=== PATIENT | female | born 1960 | race Caucasian/White ===

== ENCOUNTER 2017-12-18 22:36 | Emergency (ER) | payer SELFPAY ==
[~2017-12-18] VITALS: Ht 167.6 cm; Wt 70.0 kg
[~2017-12-18 22:36] MED LIST: CLEO300C2 PO; DIAZ10 PO; DOXY100T PO; OXYC-360 PO; PREN0.01 PO; [UNRECOGNIZED DRUG - CODE] PO
[2017-12-18 22:42] VITALS: BP 106/66; PULSE 109; RESP 22; TEMP 98.1; O2SAT 97
[2017-12-18] MEDS ORDERED: SODIUM CHLOR 0.9% 1000 ML INJ 1,000 ML IV SCH (22:58)
[2017-12-18] MEDS ORDERED: LEVO.15 PO (23:00)
[2017-12-18] MEDS ORDERED: methylPREDNISolone SOD SUCC 125 MG/2 ML VIAL IV PUSH ONE (23:00)
[2017-12-18] MEDS ORDERED: SODIUM CHLORIDE 0.9% FLUSH 10 ML FLUSH IV FLUSH PRN (23:00)
[2017-12-18] MEDS ORDERED: ONDANSETRON ODT 4 MG TAB PO ONE (23:00)
[2017-12-18] MEDS ORDERED: MELO15TA20 PO (23:00)
[2017-12-18] MEDS ORDERED: PANTOPRAZOLE SODIUM 40 MG VIAL IV PUSH ONE (23:00)
[2017-12-18] MEDS ORDERED: diphenhydrAMINE HCL 50 MG/ML VIAL IVP ONE (23:00)
[2017-12-18] MEDS ORDERED: GABA300C5 PO (23:00)
[2017-12-18 23:06] VITALS: O2SAT 99
[2017-12-18 23:19] VITALS: BP 105/59; PULSE 100; RESP 18; O2SAT 98
[2017-12-18 23:27] LABS: AUTOMATED NEUTROPHIL # 12.3 TH/MM3 (1.8-7.7); BASOPHIL # 0.1 TH/MM3 (0-0.2); BASOPHIL % 0.3 % (0.0-2.0); EOSINOPHIL # 0.1 TH/MM3 (0-0.4); EOSINOPHIL % 0.5 % (0.0-4.0); HEMATOCRIT 45.5 % (35.0-46.0); HEMOGLOBIN 15.5 GM/DL (11.6-15.3); LYMPH % 16.8 % (9.0-44.0); LYMPHOCYTE # 2.6 TH/MM3 (1.0-4.8); MEAN CELL VOLUME 88.2 FL (80.0-100.0); MEAN CORPUSCULAR HGB CONC 34.1 % (32.0-36.0); MEAN PLATELET VOLUME 7.2 FL (7.0-11.0); MONO % 3.3 % (0.0-8.0); MONOCYTE # 0.5 TH/MM3 (0-0.9); NEUT % 79.1 % (16.0-70.0); PLATELET COUNT 385 TH/MM3 (150-450); RED BLOOD COUNT 5.15 MIL/MM3 (4.00-5.30); RED CELL DISTRIBUTION WIDTH 13.8 % (11.6-17.2); WHITE BLOOD COUNT 15.5 TH/MM3 (4.0-11.0)
--- NOTE | 2017-12-18 23:33 | RADRPT ---
EXAM DATE: 12/18/2017 11:21 PM EDT AGE/SEX: 57 years / Female INDICATIONS: Patient states she was put on medication and now has a rash, substernal chest pain, and swollen eyes and throat. CLINICAL DATA: This is the patient's initial encounter. Patient reports that signs and symptoms have been present for 1 day and indicates a pain score of 7/10. MEDICAL/SURGICAL HISTORY: None. None. COMPARISON: No prior exams available for comparison. FINDINGS: Single AP view the chest. The lungs are clear. Cardiomediastinal silhouette within normal limits. No evidence of pleural effusion or pneumothorax. CONCLUSION: No acute cardiopulmonary disease identified. Electronically signed by: Ladarius Jaquez MD 12/18/2017 11:31 PM EDT
--- NOTE | 2017-12-18 23:33 | PD ---
HPI Chief Complaint: Allergic/Adverse Reaction Time Seen by Provider: 22:48 Travel History International Travel<30 days: No Contact w/Intl Traveler<30days: No Traveled to known affect area: No History of Present Illness HPI 57-year-old woman who presents to the emergency department swelling in her face and eyes, feeling of swelling in her throat, flush again with bumps in the back of her neck, and difficulty swallowing ongoing for the past 12-24 hours. She states that on December 12, she was was treated for sciatica symptoms with meloxicam , steroid pack, and gabapentin. She completed the steroid pack yesterday. Since that time she is developed worsening flushed feeling, tightness in her throat with difficulty swallowing and the red raised bumps on the back of her neck. She also started feeling pressure-like bubble in her chest gastric pain that radiates up into her chest. She had some nausea as well. She has had allergic reaction to sulfa in the remote past. Nothing recently. No history of GERD or reflux. No history of chest symptoms. She complains of some pain into her legs which is why she was prescribed the medicines and with. No significant change there. History Past Medical History Medical History: Denies Significant Hx Tetanus Vaccination: > 5 Years Influenza Vaccination: No : 1 Para: 1 Social History Alcohol Use: Yes (SOCIALLY) Tobacco Use: Yes (1 PPD) Allergies-Medications (Allergen,Severity, Reaction): Coded Allergies: Sulfa (Sulfonamide Antibiotics) (Unverified Allergy, Severe, FEVER ; NAUSEA, 12/18/17) Reported Meds & Prescriptions Reported Meds & Active Scripts Active Reported Synthroid (Levothyroxine Sodium) 150 Mcg Tab 150 Mcg PO DAILY Meloxicam 15 Mg Tab 15 Mg PO DAILY Gabapentin 300 Mg Cap 300 Mg PO BID [Doxy-Caps] 100 Mg PO BID Review of Systems Except as stated in HPI: all other systems reviewed are Neg Physical Exam Narrative GENERAL: Well-appearing 57-year-old woman, anxious, nontoxic. SKIN: Focused skin assessment warm/dry. On the back and the neck there is a small raised area that may be a skin tone but no other definitive hives elsewhere. HEAD: Atraumatic. Normocephalic. EYES: Pupils equal and round. No scleral icterus. No injection or drainage. ENT: No nasal bleeding or discharge. Mucous membranes pink and moist. NECK: Trachea midline. No JVD. CARDIOVASCULAR: Regular rate and rhythm. No murmur appreciated. RESPIRATORY: No accessory muscle use. Clear to auscultation. Breath sounds equal bilaterally. No wheezing. GASTROINTESTINAL: Abdomen soft, non-tender, nondistended. Hepatic and splenic margins not palpable. No epigastric tenderness. MUSCULOSKELETAL: No obvious deformities. No clubbing. No cyanosis. No edema. NEUROLOGICAL: Awake and alert. No obvious cranial nerve deficits. Motor grossly within normal limits. Normal speech. PSYCHIATRIC: Appropriate mood and affect; insight and judgment normal. Data Data Last Documented VS Vital Signs Date Time Temp Pulse Resp B/P (MAP) Pulse Ox O2 Delivery O2 Flow Rate FiO2 12/18/17 23:19 100 18 105/59 (74) 98 Room Air 12/18/17 22:42 98.1 Orders Orders Complete Blood Count With Diff (12/18/17 22:58) Comprehensive Metabolic Panel (12/18/17 22:58) Ecg Monitoring (12/18/17 22:58) Iv Access Insert/Monitor (12/18/17 22:58) Oximetry (12/18/17 22:58) Diphenhydramine Inj (Benadryl Inj) (12/18/17 23:00) Methylprednisolone So Succ Inj (Solumedr (12/18/17 23:00) Sodium Chlor 0.9% 1000 Ml Inj (Ns 1000 M (12/18/17 22:58) Sodium Chloride 0.9% Flush (Ns Flush) (12/18/17 23:00) Pantoprazole Inj (Protonix Inj) (12/18/17 23:00) Ondansetron Odt (Zofran Odt) (12/18/17 23:00) Electrocardiogram (12/18/17 ) Chest, Single Ap (12/18/17 ) Troponin I (12/18/17 22:58) Labs Laboratory Tests Test 12/18/17 23:10 White Blood Count 15.5 TH/MM3 Red Blood Count 5.15 MIL/MM3 Hemoglobin 15.5 GM/DL Hematocrit 45.5 % Mean Corpuscular Volume 88.2 FL Mean Corpuscular Hemoglobin 30.0 PG Mean Corpuscular Hemoglobin Concent 34.1 % Red Cell Distribution Width 13.8 % Platelet Count 385 TH/MM3 Mean Platelet Volume 7.2 FL Neutrophils (%) (Auto) 79.1 % Lymphocytes (%) (Auto) 16.8 % Monocytes (%) (Auto) 3.3 % Eosinophils (%) (Auto) 0.5 % Basophils (%) (Auto) 0.3 % Neutrophils # (Auto) 12.3 TH/MM3 Lymphocytes # (Auto) 2.6 TH/MM3 Monocytes # (Auto) 0.5 TH/MM3 Eosinophils # (Auto) 0.1 TH/MM3 Basophils # (Auto) 0.1 TH/MM3 CBC Comment DIFF FINAL Differential Comment Blood Urea Nitrogen 15 MG/DL Creatinine 0.95 MG/DL Random Glucose 99 MG/DL Total Protein 7.1 GM/DL Albumin 3.2 GM/DL Calcium Level 8.1 MG/DL Alkaline Phosphatase 131 U/L Aspartate Amino Transf (AST/SGOT) 21 U/L Alanine Aminotransferase (ALT/SGPT) 29 U/L Total Bilirubin 0.4 MG/DL Sodium Level 138 MEQ/L Potassium Level 4.3 MEQ/L Chloride Level 104 MEQ/L Carbon Dioxide Level 23.5 MEQ/L Anion Gap 11 MEQ/L Estimat Glomerular Filtration Rate 61 ML/MIN Troponin I LESS THAN 0.02 NG/ML MDM Medical Decision Making Medical Screen Exam Complete: Yes Emergency Medical Condition: Yes Interpretation(s) My review of EKG: Normal sinus rhythm at a rate of 98, normal axis, holes, no acute ischemia. LABS: CBC is remarkable for mild leukocytosis. CMP is unremarkable Troponins negative Differential Diagnosis Allergic reaction, gastritis, adverse effect of NSAIDs/steroids, versus drug effect, other Narrative Course Medical decision making 57-year-old presents emergency department with feeling of facial fullness with some skin changes in throat tightening suggestive of an allergic reaction. She also has some epigastric and chest pain that may be related to gastritis from steroid and NSAID combination. She overall looks well. No respiratory distress. She denies spitting or drooling. I do not hear any wheezing on exam. There is a little bit of a raised red wheal on the back of her neck but no other definitive skin findings to clench allergic reaction is a diagnosis although this still seems most likely. She just finished her steroid pack and that may be masking the symptoms until now. Will place her back on steroids, antihistamines, hold any NSAIDs, place her on a PPI. Will monitor her here in the emergency department and check x-ray EKG and labs given her chest pain. Likely discharge with treatment for allergic reaction and gastritis. Diagnosis Primary Impression: Allergic reaction Additional Impression: Gastritis Additional Instructions: Take prednisone daily for the next 5 days as prescribed. Use [id number] Benadryl as needed for itching or hives. Take omeprazole for the next 4 weeks to protect the stomach and help with irritation. Avoid NSAIDs such as ibuprofen and Aleve and meloxicam as this can further irritate the stomach. Take gabapentin as prescribed. Take acetaminophen 1000 mg up to 3 times daily as needed for pain. Follow with her primary doctor in the next 2-4 days. Return to the emergency department for any worsening trouble swallowing, any trouble breathing, or any other new or worsening symptoms. Med/Other Pt SpecificInfo: Prescription(s) given Scripts Prednisone (Deltasone) 20 Mg Tab 20 MG PO BID for 5 Days, #10 TAB 0 Refills Prov: Carlo Vaz MD 12/19/17 Disposition: 01 DISCHARGE HOME Carlo Vaz MD Dec 18, 2017 23:33
[2017-12-18 23:46] LABS: ALBUMIN 3.2 GM/DL (3.4-5.0); ALT (GPT) 29 U/L (10-53); AST (GOT) 21 U/L (15-37); BICARBONATE 23.5 MEQ/L (21.0-32.0); BLOOD UREA NITROGEN 15 MG/DL (7-18); CALCIUM 8.1 MG/DL (8.5-10.1); CHLORIDE 104 MEQ/L (98-107); CREATININE 0.95 MG/DL (0.50-1.00); GLOMERULAR FILTRATION RATE 61 ML/MIN (>89); GLUCOSE,RANDOM 99 MG/DL (74-106); SODIUM (NA) 138 MEQ/L (136-145)
[2017-12-18 23:48] LABS: ALKALINE PHOSPHATASE 131 U/L (45-117); TOTAL BILIRUBIN ADULT 0.4 MG/DL (0.2-1.0); TOTAL PROTEIN 7.1 GM/DL (6.4-8.2); TROPONIN I LESS THAN 0.02 NG/ML (0.02-0.05)
[2017-12-19] MEDS ORDERED: PRED-503 PO (00:02)
[2017-12-19] MEDS ORDERED: OMEP20TA93 PO (00:05)
--- NOTE | 2017-12-19 09:06 | EKG ---
Date Performed: 12/18/2017 Time Performed: 22:58:49 PTAGE: 57 years EKG: Sinus rhythm LOW QRS VOLTAGE IN PRECORDIAL LEADS BORDERLINE ECG NO PREVIOUS TRACING DOCTOR: Carlo Peña Interpretating Date/Time 12/19/2017 09:04:55
== END 2017-12-19 00:22 | disposition home or self-care (01) ==
LOC: NEPC 22:36
DX: T78.40XA Allergy, unspecified, initial encounter (principal); K29.70 Gastritis, unspecified, without bleeding; F17.200 Nicotine dependence, unspecified, uncomplicated; R07.9 Chest pain, unspecified
CPT/HCPCS: 71045; 80053; 84484; 85025; 93005; 96374; 96375; 99284; C9113; J1200; J2930; J7030